=== PATIENT | male | born 1945 | race Hispanic/Latino ===

== ENCOUNTER → 2017-04-08 | Outpatient (CLI) | payer OTHER | END | disposition home or self-care (01) | LOC: RAH 04-05 16:29 | PROVIDERS: ATTEND Internal Medicine | DX: M47.895 Other spondylosis, thoracolumbar region (principal); I70.90 Unspecified atherosclerosis | CPT/HCPCS: 71046 ==

== ENCOUNTER → 2018-04-05 | Outpatient (CLI) | payer OTHER | END | disposition home or self-care (01) | LOC: OIH 13:40 | PROVIDERS: ATTEND Internal Medicine | DX: I10 Essential (primary) hypertension (principal); I70.0 Atherosclerosis of aorta | CPT/HCPCS: 71046 ==

== ENCOUNTER → 2019-02-13 | Outpatient (CLI) | payer OTHER | END | disposition home or self-care (01) | LOC: OIH 10:35 | PROVIDERS: ATTEND Internal Medicine | DX: R05 Cough (principal) | CPT/HCPCS: 71046 ==

== ENCOUNTER → 2019-08-22 | Outpatient (CLI) | payer OTHER | END | disposition home or self-care (01) | LOC: SHCH 09:32 | PROVIDERS: ATTEND Internal Medicine Cardiovascular Disease | DX: I65.23 Occlusion and stenosis of bilateral carotid arteries (principal) | CPT/HCPCS: 93880 ==

== ENCOUNTER → 2019-09-04 | Outpatient (CLI) | payer OTHER ==
--- NOTE | 2019-09-04 11:00 | NUR ---
[facility] COMPLETED ASPIRATION AFTER SWALLOW OF THIN LIQUIDS VIA CUP, NON TRANSIENT PENETRATION WITH THIN AND NECTAR THICK LIQUIDS AT THIS TIME. RECOMMEND REGULAR SOLIDS, HONEY THICK LIQUIDS, AND PILLS WHOLE WITH LIQUIDS TOLERATED. COMPENSATORY STRATEGIES: EXTRA DRY SWALLOWS, ALTERNATE BITES/SIPS, SIT UPRIGHT DURING P.O. INTAKE AND 30 MINUTES AFTER MEALTIMES. FISH CHECKER REVIEWED RESULTS AND RECOMMENDATIONS WITH Pt. FISH CHECKER EDUCATED Pt ON RISKS AND CONSEQUENCES OF ASPIRATION. FISH CHECKER PROVIDED Pt WITH A CAN OF THICKENER AND DEMONSTRATED HOW TO REACH HONEY THICK CONSISTENCIES. ALL QUESTIONS ANSWERED AT THIS TIME. SPEECH THERAPY RECOMMENDED TO ADDRESS SWALLOWING GOALS. GI CONSULT RECOMMENDED. Addendum: 09/04/[address] RUFINA WEAVER Amended: Links added.
== END | disposition home or self-care (01) ==
LOC: RAH 10:06
PROVIDERS: ATTEND Internal Medicine Gastroenterology
DX: R13.10 Dysphagia, unspecified (principal); R63.3 Feeding difficulties

== ENCOUNTER 2021-05-19 06:15 | Day surgery (SDC) | payer OTHER ==
[2021-05-11 16:12] LABS: CREATININE 0.9 mg/dL (0.5-1.5); POTASSIUM 4.2 mmol/L (3.5-5.1)
[2021-05-18 10:24] VITALS: BP 170/69
[2021-05-19] VITALS (16 sets, daily range): BP systolic 158–173; BP diastolic 75–90
[~2021-05-19] VITALS: Ht 167.6 cm; Wt 76.9 kg
[~2021-05-19 06:15] MED LIST: AEC81 PO; AMLO2.5T4 PO; ATOR40TA69 PO; CHOL2000 PO; FINA5TAB41 PO; GARL1000 PO; LISI40TA9 PO; METF-444 PO; VITAMIN B12 PO; [UNRECOGNIZED DRUG - CODE] PO
[2021-05-19] MEDS ORDERED: EPINEPHRINE 1 MG/ML 30ML VIAL IJ ONE (06:51)
[2021-05-19] MEDS ORDERED: BACITRACIN 28.4 GM OINT TP ONE (06:51)
[2021-05-19] MEDS ORDERED: 0.9%NACL 1000ML 1,000 ML IV ONE (07:06)
[2021-05-19] MEDS ORDERED: LIDOCAINE 1%-EPI 1:100,000 20 ML VIAL IJ SCH (07:30)
[2021-05-19] MEDS ORDERED: OXYMETAZOLINE HCL SPRAY 15 ML BOTTLE ONE (07:34)
[2021-05-19] MEDS ORDERED: SUCCINYLCHOLINE 200MG/10ML SYR ONE (07:39)
[2021-05-19] MEDS ORDERED: LIDOCAINE PF 100MG/5ML (2%) SYRINGE 5ML ONE (07:39)
[2021-05-19] MEDS ORDERED: DEXAMETHASONE SOD PHOSPHATE 10MG/ML 1ML VIAL ONE (07:39)
[2021-05-19] MEDS ORDERED: FENTANYL CITRATE PF 50 MCG/1 ML 2ML VIAL ONE (07:40)
[2021-05-19] MEDS ORDERED: NEOSTIGMINE 5MG/5ML SYR IV ONE (07:40)
[2021-05-19] MEDS ORDERED: GLYCOPYRROLATE 1 MG/5 ML SYRINGE ONE (07:40)
[2021-05-19] MEDS ORDERED: PROPOFOL 10 MG/ML 20ML VIAL IV ONE (07:40)
[2021-05-19] MEDS ORDERED: ONDANSETRON 4MG INJ ONE (07:40)
[2021-05-19] MEDS ORDERED: ROCURONIUM 10MG/1ML SYR 10 MG/ML ML ONE (07:40)
[2021-05-19] MEDS ORDERED: ATROPINE 1MG SYG IVP ONE (08:05)
[2021-05-19] MEDS ORDERED: MEPERIDINE-PF 25 MG/ML SYG ONE (08:10)
[2021-05-19] MEDS ORDERED: PHENYLEPHRINE HCL 10 MG/ML 1ML VIAL IV ONE (08:13)
== END 2021-05-19 10:25 | disposition home or self-care (01) ==
LOC: DAH 06:15
PROVIDERS: ATTEND Otolaryngology Plastic Surgery within the Head & Neck
DX: J34.3 Hypertrophy of nasal turbinates (principal); Z20.822 Contact with and (suspected) exposure to COVID-19; J32.8 Other chronic sinusitis; J32.0 Chronic maxillary sinusitis; J32.2 Chronic ethmoidal sinusitis; J32.3 Chronic sphenoidal sinusitis; J34.2 Deviated nasal septum; J34.89 Other specified disorders of nose and nasal sinuses; J30.9 Allergic rhinitis, unspecified; I25.10 Atherosclerotic heart disease of native coronary artery without angina pectoris; I11.9 Hypertensive heart disease without heart failure; E11.39 Type 2 diabetes mellitus with other diabetic ophthalmic complication; H42 Glaucoma in diseases classified elsewhere; Z95.5 Presence of coronary angioplasty implant and graft; Z79.899 Other long term (current) drug therapy
CPT/HCPCS: 30140; 30520; 31254; 31255; 31267; 36415; 80048; 82948 ×2; 87635; 88304; 88305; 88311; 93005; A4215 ×2; A4221; A4222; A4223; A4649; A4657; A4663; A6260; C9803; J0171; J0330; J0461; J1100; J2001; J2175; J2370; J2405; J2704; J2710; J3010; J3490 ×2; J7030

== ENCOUNTER → 2023-01-03 | Outpatient (CLI) | payer OTHER ==
[2023-01-03 12:49] LABS: CREATININE 1.3 mg/dL (0.5-1.5); POTASSIUM 4.5 mmol/L (3.5-5.1)
== END | disposition home or self-care (01) ==
LOC: LAB 09:41
PROVIDERS: ATTEND Internal Medicine Cardiovascular Disease
DX: I25.10 Atherosclerotic heart disease of native coronary artery without angina pectoris (principal); E03.9 Hypothyroidism, unspecified
CPT/HCPCS: 36415; 80048

== ENCOUNTER → 2023-01-12 | Outpatient (CLI) | payer OTHER ==
[~2023-01-12] MED LIST changes: +IOHEXOL 350 MG/ML 100ML INFUS..BTL IV ONE
== END | disposition home or self-care (01) ==
LOC: RAH 08:46
PROVIDERS: ATTEND Internal Medicine Cardiovascular Disease
DX: I65.23 Occlusion and stenosis of bilateral carotid arteries (principal); M47.812 Spondylosis without myelopathy or radiculopathy, cervical region; I25.10 Atherosclerotic heart disease of native coronary artery without angina pectoris
CPT/HCPCS: 70498; Q9967

== ENCOUNTER → 2023-07-29 | Outpatient (CLI) | payer OTHER ==
[~2023-07-29] MED LIST changes: -IOHEXOL 350 MG/ML 100ML INFUS..BTL IV ONE
[2023-07-29] MEDS: REGADENOSON 0.4 MG/5 ML PF SYG IVP ONE (11:17)
== END | disposition home or self-care (01) ==
LOC: SHCH 08:44
PROVIDERS: ATTEND Internal Medicine Cardiovascular Disease
DX: I25.10 Atherosclerotic heart disease of native coronary artery without angina pectoris (principal)
CPT/HCPCS: 78452; 96374; 93017; J2785; A9500 ×2

== ENCOUNTER 2023-10-20 08:27 | Day surgery (SDC) | payer OTHER ==
[2023-10-10 09:02] VITALS: BP 172/71; PULSE 47; RESP 16
[2023-10-10 09:02] LABS: BASOPHILS # (AUTO) 0.06 K/uL (0.00-0.20); BASOPHILS % (AUTO) 0.8 % (0.0-5.0); EOSINOPHILS # (AUTO) 0.14 K/uL (0.00-0.70); EOSINOPHILS % (AUTO) 1.9 % (0.0-8.0); HEMATOCRIT 41.5 % (42-54); IMMATURE GRANULOCYTE ABSOLUTE 0.03 K/uL (0-1); LYMPHOCYTES # (AUTO) 2.1 K/uL (1.0-4.8); LYMPHOCYTES % (AUTO) 28.7 % (21.0-51.0); MEAN CORPUSCULAR HGB CONC 34.5 g/dL (32.0-36.0); MONOCYTES # (AUTO) 0.6 K/uL (0.1-1.0); MONOCYTES % (AUTO) 8.3 % (3.0-13.0); NEUTROPHILS # (AUTO) 4.3 K/uL (1.8-7.7); NEUTROPHILS % (AUTO) 59.9 % (40.0-77.0); PLATELET COUNT (AUTO) 148 K/uL (130-400); RED BLOOD CELL COUNT(AUTO) 4.61 MIL/uL (4.50-6.20); RED CELL DISTRIBUTION WIDTH 13.2 % (11.0-15.5); WHITE BLOOD COUNT (AUTO) 7.2 K/uL (4.8-10.8)
[2023-10-10 09:05] LABS: APPEARANCE,URINE CLEAR (CLEAR); BILIRUBIN,URINE NEGATIVE (NEGATIVE); COLOR,URINE LIGHT-YELLOW (YELLOW); GLUCOSE, URINE (UA) NEGATIVE (NEGATIVE); KETONES,URINE NEGATIVE (NEGATIVE); LEUKOCYTE ESTERASE ,URINE NEGATIVE Leu/uL (NEGATIVE); NITRATE,URINE NEGATIVE (NEGATIVE); OCCULT BLOOD,URINE NEGATIVE (NEGATIVE); PH,URINE 6.5 (5.0-8.0); PROTEIN,URINE 10 mg/dL (NEGATIVE); UROBILINOGEN,URINE 0.2 mg/dL (0.2-1.0)
[2023-10-10 09:07] LABS: ADD UA MICROSCOPIC YES
[2023-10-10 09:08] LABS: RBC,URINE 0-1 /HPF (0-1); WBC,URINE 0-1 /HPF (0-1)
[2023-10-10 09:17] LABS: CREATININE 1.2 mg/dL (0.5-1.3); INR 1.01 (0.85-1.15); POTASSIUM 4.5 mmol/L (3.5-5.1); PROTHROMBIN TIME 10.9 SEC (9.6-11.6)
[2023-10-10 09:27] LABS: B-TYPE NATRIURETIC PEPTIDE 54 pg/mL (0-100)
[~2023-10-20] VITALS: Ht 167.6 cm; Wt 76.7 kg
[2023-10-20] VITALS (10 sets, daily range): BP systolic 123–178; BP diastolic 54–92; PULSE 52–62; RESP 12–18
[~2023-10-20 08:27] MED LIST changes: +BACL10TA PO; +CARB10DR5 OP; -FINA5TAB41 PO; -GARL1000 PO; +GARL10002 PO; +LATA2.5D14 OP; +MAGN250T35 PO; +METO25TA6 PO; +NITR0.4T50 SL; +PANT40TA54 PO; -VITAMIN B12 PO; +[UNRECOGNIZED DRUG - CODE] MM
[2023-10-20] MEDS: 0.9%NACL 1000ML 1,000 ML IV SCH (10:35)
[2023-10-20] MEDS ORDERED: LIDOCAINE HCL 400MG/20ML VIAL ONE (10:57)
[2023-10-20] MEDS ORDERED: MIDAZOLAM HCL 1 MG/ML 2ML VIAL ONE (10:58)
[2023-10-20] MEDS ORDERED: IOHEXOL 350 MG/ML 100ML INFUS..BTL IV ONE (10:58)
[2023-10-20] MEDS ORDERED: HEPARIN 10,000 UNIT/10ML (1,000 UNIT/ML) VIAL ONE (10:58)
[2023-10-20] MEDS ORDERED: HYDRALAZINE 20MG/ML VIAL ONE (11:12)
[2023-10-20] MEDS ORDERED: ENALAPRILAT DIHYDRATE 1.25 MG/ML 2ML VIAL IVP ONE (11:22)
[2023-10-20] MEDS ORDERED: DEXTROSE 50%-WATER 50 ML DISP.SYRIN IV PRN (12:00)
[2023-10-20] MEDS ORDERED: GLUCAGON 1MG KIT 1 MG ML IM PRN (12:00)
== END 2023-10-20 16:20 | disposition home or self-care (01) ==
LOC: DAH 08:27
PROVIDERS: ATTEND Internal Medicine Cardiovascular Disease
DX: I25.118 Atherosclerotic heart disease of native coronary artery with other forms of angina pectoris (principal); I12.9 Hypertensive chronic kidney disease with stage 1 through stage 4 chronic kidney disease, or unspecified chronic kidney disease; E11.22 Type 2 diabetes mellitus with diabetic chronic kidney disease; N18.31 Chronic kidney disease, stage 3a; E78.5 Hyperlipidemia, unspecified; E03.9 Hypothyroidism, unspecified; Z95.5 Presence of coronary angioplasty implant and graft; Z79.82 Long term (current) use of aspirin; Z79.84 Long term (current) use of oral hypoglycemic drugs; Z79.899 Other long term (current) drug therapy
CPT/HCPCS: 80048; 83880; 85025; 85610; 85730; 81001; 36415; 71045; 93005; 93458; 82948; C1894; C1760; J3490 ×2; J0360; J2250; J1644; Q9967; A4215; A4222; A4221; A4663; A4216; A4606; Q9965; A4223 ×3; 99156; 99157

== ENCOUNTER → 2024-05-23 | Outpatient (CLI) | payer OTHER ==
[~2024-05-23] MED LIST changes: -AEC81 PO; -AMLO2.5T4 PO; +ASPI-1005 PO; +CLOP-31 PO; +ISOS30TA92 PO; +LOSA25TA41 PO; +RANO500T2 PO
== END | disposition home or self-care (01) ==
LOC: LAB 13:14
PROVIDERS: ATTEND Internal Medicine Cardiovascular Disease
DX: I10 Essential (primary) hypertension (principal)
CPT/HCPCS: 36415; 83880